=== PATIENT | male | born 1990 | race Caucasian/White ===

== ENCOUNTER → 2022-06-30 13:04 | Outpatient (RCR) | payer OTHER, SELFPAY ==
[2020-07-27 05:59] LABS: COVID-19 Test Negative (Negative); IDNOW Serial# 55D5AD1C
[2020-07-30 10:09] LABS: COVID-19 Test Negative (Negative); IDNOW Serial# 55D5AD1C
[2020-08-05 10:00] LABS: COVID-19 Test Negative (Negative)
[2020-08-12 07:40] LABS: COVID-19 Test Negative (Negative)
[2020-08-27 10:00] LABS: SARS-COV-2 PCR UMBRL Not Detected
[2020-09-02 11:55] LABS: SARS-COV-2 PCR UMBRL Not Detected
[2020-09-09 08:16] LABS: SARS-COV-2 PCR UMBRL Not Detected
[2020-09-17 11:13] LABS: SARS-COV-2 PCR UMBRL Not Detected
[2020-09-27 09:52] LABS: SARS-COV-2 PCR UMBRL NEGATIVE
== END | disposition home or self-care (01) ==
LOC: HO.EMPCOV 07-30
PROVIDERS: Visit Provider Internal Medicine
DX: Z20.828 Contact with and (suspected) exposure to other viral communicable diseases (principal)
CPT/HCPCS: 36415; 87635; C9803; U0003